=== PATIENT | male | born 1965 | race Caucasian/White ===

== ENCOUNTER 2018-01-05 09:30 | Emergency (ER) | payer SELFPAY ==
[~2018-01-05] VITALS: Ht 172.7 cm; Wt 72.6 kg
[2018-01-05 09:45] VITALS: Ht 172.7 cm; Wt 72.6 kg
[2018-01-05 10:43] LABS: BASOPHIL % 1.9 % (0-2); PLATELET COUNT 201 x10^3mcL (130-400)
[2018-01-05 10:57] LABS: microscopic required? NO
[2018-01-05 11:06] LABS: CALCIUM 8.6 mg/dL (8.5-10.1); CARBON DIOXIDE 27.7 mmol/L (21-32); CHLORIDE SERUM 100 mmol/L (98-107); CREATININE SERUM 0.7 mg/dL (0.7-1.3); GFR1 > 60 mL/min; GLUCOSE SERUM 81 mg/dL (74-106); SODIUM SERUM 138 mmol/L (136-145)
[2018-01-05 11:13] LABS: urine erythrocyte NEGATIVE (NEGATIVE)
[2018-01-05 11:21] LABS: ALBUMIN 3.6 g/dL (3.4-5.0); ALKALINE PHOSPHATASE 35 U/L (46-116); ALT/SGPT 72 U/L (16-63); AMYLASE 31 U/L (25-115); AST/SGOT 84 U/L (15-37); BILIRUBIN TOTAL 1.2 mg/dL (0.20-1.00); LIPASE 101 IU/L (73-393); MAGNESIUM 2.1 mg/dL (1.8-2.4); T4(THYROXINE) 13.3 ug/dL (4.7-13.3); TOTAL PROTEIN, SERUM 7.6 g/dL (6.4-8.2)
[2018-01-05 11:22] LABS: CHOLESTEROL 131 mg/dL (<200); HDL CHOLESTEROL 71 mg/dL (40-60)
[2018-01-05 11:35] VITALS: BP 138/79
[2018-01-05 12:16] LABS: AMPHETAMINE QUAL UR POSITIVE (See below)
== END 2018-01-05 13:00 | disposition home or self-care (01) ==
LOC: ED 09:30 → EDBD 09:30 → ED 13:00
PROVIDERS: Emergency Medicine
DX: G93.41 Metabolic encephalopathy (principal); G40.909 Epilepsy, unspecified, not intractable, without status epilepticus; F15.20 Other stimulant dependence, uncomplicated
CPT/HCPCS: 82962; G0480; J3411; J3475; J3490; J7030; Q0092

== ENCOUNTER 2020-01-11 01:10 | Emergency (ER) | payer OTHER ==
[~2020-01-11] VITALS: Ht 172.7 cm; Wt 58.1 kg
[2020-01-11 01:31] VITALS: Ht 172.7 cm; Wt 58.1 kg
[2020-01-11 02:22] VITALS: BP 124/95
== END 2020-01-11 02:22 | disposition home or self-care (01) ==
LOC: ED 01:10
DX: K59.00 Constipation, unspecified (principal)